=== PATIENT | male | born 1945 | race Caucasian/White ===

== ENCOUNTER 2023-01-28 14:06 | Emergency (ER) | payer BC, OTHER ==
[2023-01-28 14:33] VITALS: BP 154/73; PULSE 69; RESP 18; TEMP 98.4; BMI 29.5
== END 2023-01-28 15:11 | disposition home or self-care (01) ==
LOC: FER 14:06
PROC: 0T9B70Z Drainage of Bladder with Drainage Device, Via Natural or Artificial Opening (ICD-10-PCS; principal; 2023-01-28)
DX: R33.9 Retention of urine, unspecified (principal); N13.9 Obstructive and reflux uropathy, unspecified
CPT/HCPCS: 99283-25